=== PATIENT | male | born 1965 | race Caucasian/White ===

== ENCOUNTER 2018-07-10 07:41 | Emergency (ER) | payer MEDICAID ==
[2018-07-10] MEDS ORDERED: 0.9 % SODIUM CHLORIDE 1,000 ML BAG IV ONE (07:48)
--- NOTE | 2018-07-10 07:52 | Emergency Department Record ---
History of Present Illness - General Chief Complaint: Abdominal Pain Stated Complaint: LOWER RT SIDE PAIN Time Seen by Provider: 07/10/18 07:44 Source: Patient Mode of Arrival: Ambulatory Limitations: No limitations - History of Present Illness Initial Comments: 52 yo male presents with right sided pain this morning. The pain started around 6:30am. The pain is sharp. Radiates to the back on the right side. He has some nausea. No vomiting. No rash. No diarrhea. No other changes in his recent health. No fever. MD Complaint: Abdominal pain, Flank pain Onset/Timin -: Hour(s) Location: RLQ Radiation: None Migration to: No migration Severity: Severe Severity scale (1-10): 9 Quality: Sharp Consistency: Constant Improves With: Nothing Worsens With: Nothing Associated Symptoms: Chills, Nausea - Related Data Previous Rx's Medication Instructions Recorded Hydrocodone/APAP 5/325Mg [[place] 1 each PO Q6H #10 tab 07/10/18 5Mg/325Mg] Ondansetron [Zofran Odt] 4 mg PO Q8H #15 tab.rapdis 07/10/18 Allergies Allergy/AdvReac Type Severity Reaction Status Date / Time No Known Drug Allergies Allergy Verified 07/10/18 07:48 Travel Screening - Travel/Exposure Within Last 30 Days Have you traveled within the last 30 days?: Yes Location Detail:: [place] - Travel Symptoms Symptom Screening: None Review of Systems Constitutional: Denies: Chills, Fever, Malaise, Weakness, Weight change Eyes: Denies: Eye discharge ENT: Denies: Congestion, Throat pain Respiratory: Denies: Cough, Dyspnea, Hemoptysis, Wheezes Cardiovascular: Denies: Chest pain, Palpitations, Syncope Endocrine: Denies: Fatigue Gastrointestinal: Reports: Abdominal pain, Nausea. Denies: Diarrhea, Vomiting Genitourinary: Denies: Dysuria, Frequency, Hematuria Musculoskeletal: Reports: Back pain. Denies: Arthralgia Skin: Denies: Bruising, Change in color, Rash Neurological: Denies: Confusion, Headache Psychiatric: Denies: Anxiety Hematological/Lymphatic: Denies: Easy bleeding, Easy bruising Past Medical History - SOCIAL HISTORY Smoking Status: Never smoker - RESPIRATORY Hx Respiratory Disorders: No - CARDIOVASCULAR Hx Cardio Disorders: Yes - NEURO Hx Neuro Disorders: No - GI Hx GI Disorders: Yes Comment:: had scope - Hx Genitourinary Disorders: No - ENDOCRINE Hx Endocrine Disorders: No - MUSCULOSKELETAL Hx Musculoskeletal Disorders: Yes Hx Back Injury: Yes (lifting injury) - PSYCH Hx Psych Problems: No - HEMATOLOGY/ONCOLOGY Hx Hematology/Oncology Disorders: No Family Medical History Hx Diabetes: Father, Mother Hx Heart Disease: Grandparents *Heart Comment: heart attacks Physical Exam - General General Appearance: Alert, Oriented x3, Cooperative, No acute distress Limitations: No limitations - Head Head exam: Atraumatic, Normal inspection - Eye Eye exam: Normal appearance. negative: Conjunctival injection, Scleral icterus - ENT ENT exam: Normal exam Ear exam: Normal external inspection Nasal Exam: Normal inspection Mouth exam: Normal external inspection - Neck Neck exam: Normal inspection - Respiratory Respiratory exam: Normal lung sounds bilaterally. negative: Respiratory distress - Cardiovascular Cardiovascular Exam: Normal rhythm, Normal heart sounds. negative: Diastolic murmur, Systolic murmur Peripheral Pulses: 2+: Radial (R), Radial (L) - GI/Abdominal GI/Abdominal exam: Soft, Tenderness (soft but tender RLQ, R flank). negative: Distended, Guarding, Rebound - Rectal Rectal exam: Deferred - exam: Deferred - Extremities Extremities exam: Normal inspection. negative: Tenderness - Back Back exam: Reports: Normal inspection. Denies: Rash noted - Neurological Neurological exam: Alert, Oriented X3 - Psychiatric Psychiatric exam: Normal affect, Normal mood - Skin Skin exam: Dry, Intact, Normal color, Warm Course Vital Signs 07/10/18 07:45 Temperature 97.4 F L Pulse Rate 44 L Respiratory 20 Rate Blood Pressure 135/82 Pulse Ox 99 - Reevaluation(s) Reevaluation #1: 07/10/18 08:13 No acute changes on the CBC 07/10/18 08:45 The BMP is normal The CT was read as distal 1-2mm stone in the at the UVJ with mild HN with perinephric stranding. Pain is returning. 07/10/18 10:10 4/10 pain. Doing better. He was encouraged to give a UA when available 07/10/18 10:13 The patient was prescribed a controlled substance. The prescription does not exceed three days. MAPS was reviewed at the time of the prescripts The topics of abuse, addiction, over dose, dangers of multiple medications, disposal, and illegal distribution were discussed with the patient. The patient verbalized understanding of the risks of the medication being provided 07/10/18 11:31 UA is negative for infection 07/10/18 11:31 We discussed the results of the tests and questions were answered at the time of discharge. The patient is doing well and is comfortable with DC. DC vitals were reviewed. We discussed at length reasons to immediately return to the ED as well as close follow up. The patient will call the PCP for close follow up of this ED visit to review t his visit and the tests performed Medical Decision Making - Lab Data Result diagrams: 07/10/18 07:50 07/10/18 07:50 Disposition Disposition: Discharge Clinical Impression: Renal colic on right side Disposition: Home, Self-Care Condition: (1) Good Instructions: Renal Colic (ED) Additional Instructions: Call your doctor for the next available follow up appointment Review this ER visit and the tests performed with your family doctor Return to the ER for a recheck if worse, any new concerns or questions Take the prescriptions provided as directed Strain your urine to look for the passed stone at home Prescriptions: Hydrocodone/APAP 5/325Mg [[place] 5Mg/325Mg] 1 each PO Q6H #10 tab Ondansetron [Zofran Odt] 4 mg PO Q8H #15 tab.rapdis Forms: Patient Portal Access Time of Disposition: 11:31 Quality - Quality Measures Quality Measures: N/A - Blood Pressure Screening Does Patient Have Any of the Following: No Blood Pressure Classification: Normal BP Reading Systolic Measurement: 115 Diastolic Measurement: 71 Screening for High Blood Pressure: < Normal BP, F/U Not Required > [G8783]
[2018-07-10] MEDS ORDERED: MORPHINE SULFATE 10 MG/ML VIAL IVP ONE ×2 (07:57→08:45)
[2018-07-10] MEDS ORDERED: ONDANSETRON HCL IV 4 MG/2 ML VIAL IVP ONE ×2 (07:57→08:45)
[2018-07-10 08:03] LABS: ABSOLUTE NEUTROPHIL COUNT 2.77; BASO % 1.2 % (0-6); EOS % 2.7 % (0-6); GRAN % 37.3 % (47-80); HEMATOCRIT 50.1 % (42.0-52.0); HEMOGLOBIN 16.6 gm/dl (14.0-18.0); LYMPH % 48.6 % (16-45); MEAN CELL VOLUME 93.1 fl (81-97); MEAN CORPUSCULAR HEMOGLOBIN 30.9 pg (27-33); MEAN CORPUSCULAR HGB CONC 33.1 g/dl (32-36); MEAN PLATELET VOLUME 9.8 fl (7.4-10.4); MONO % 10.2 % (0-9); PLATELET COUNT 241 K/uL (130-400); RED BLOOD COUNT 5.38 M/uL (4.40-5.70); RED CELL DISTRIBUTION WIDTH 13.6 % (11.5-14.5); WHITE BLOOD COUNT W/O DIFF 7.4 K/uL (4.2-12.2)
[2018-07-10 08:15] LABS: BLOOD UREA NITROGEN 18 mg/dL (6-20); CREATININE 0.9 mg/dL (0.7-1.2); EST GLOMERULAR FILTRATION RATE > 60 mL/min
[2018-07-10 08:16] LABS: LIPASE 19 U/L (13-60); TOTAL PROTEIN 6.8 g/dL (6.6-8.7)
[2018-07-10 08:18] LABS: GLUCOSE,RANDOM 137 mg/dL (74-109)
[2018-07-10 08:20] LABS: ALT/SGPT 30 U/L (<41); AST/SGOT 29 U/L (10.0-50.0)
[2018-07-10 08:21] LABS: ALB/GLOB RATIO 1.3 (1.1-1.8); ALBUMIN 3.9 g/dL (4.0-5.0); ALKALINE PHOSPHATASE 56 U/L (40-129)
[2018-07-10] MEDS ORDERED: KETOROLAC 30 MG/ML VIAL IVP ONE ×2 (08:22→10:10)
[2018-07-10 11:16] LABS: URINE APPEARANCE CLOUDY; URINE BILIRUBIN NEGATIVE (NEGATIVE); URINE BLOOD MODERATE (NEGATIVE); URINE COLOR YELLOW; URINE GLUCOSE (UA) NEGATIVE (NEGATIVE); URINE KETONE 15 mg/dL (NEGATIVE); URINE LEUKOCYTE ESTERASE NEGATIVE (NEGATIVE); URINE NITRITE POSITIVE (NEGATIVE); URINE PROTEIN NEGATIVE (NEGATIVE); URINE UROBILINOGEN 0.2 E.U./dL (0.20 - 1.00)
[2018-07-10 11:25] LABS: URINE BACTERIA NONE SEEN; URINE EPITHELIAL CELLS 0 - 2 (FEW); URINE WBC NONE SEEN (0-2/hpf)
--- NOTE | 2018-07-12 08:33 | CT SCAN REPORT ---
EXAM: CT OF THE ABDOMEN AND PELVIS WITHOUT CONTRAST HISTORY: SEVERE RIGHT SIDED PAIN RADIATING INTO BACK. TECHNIQUE: Thin collimation helical CT examination of the abdomen and pelvis was performed without oral or intravenous contrast administration. Lack of oral and IV contrast utilization limits evaluation of bowel and solid viscera respectively. Comparison: CT angiogram of the chest dated 09/22/15. FINDINGS: There is mild dependent atelectasis in each lung base. No pleural or pericardial effusion. The heart is at the upper limits of normal in size. Mild diffuse decreased density of the liver relative to the spleen consistent with steatosis with a small area of sparing adjacent to the gallbladder fossa. There is a tiny calcified granuloma near the posterior margin of the mid right liver lobe. No suspicious focal hepatic lesion. The spleen, pancreas, and adrenal glands are normal in appearance. The kidneys are normal in size and position. A couple tiny nonobstructing calculi are noted in the mid to upper left kidney with the largest measuring 2 mm. A tiny 1 mm nonobstructing calculus is noted in the upper pole of the right kidney. No other nephrolithiasis is seen. There is a contour deforming fluid density mass arising from the medial lower pole of the left kidney measuring 4.2 x 3.7 cm. This is consistent with a cyst. There is a questionable too small to characterize hypodense lesion within the lateral upper right kidney measuring 10 x 9 mm. This is nonspecific, but also likely a cyst. There is mild dilatation of the right renal collecting system down to the level of the vesicoureteral junction where there is a tiny 1-2 mm calculus suggested projecting into the urinary bladder lumen. There is associated right perinephric fat stranding and proximal periureteral fat stranding. This likely relates to caliceal rupture. Superimposed infection less likely. The left renal collecting system is normal in caliber. Evaluation of the urinary bladder is somewhat limited by lack of distention. The prostate gland is mildly enlarged. Multiple calcifications are scattered within the inferior pelvis consistent with phleboliths. There is calcification within the central prostate and the vas deferens bilaterally. There is mild fat density prominence in the right inguinal canal consistent with fat within a small inguinal hernia sac. No gross bowel dilatation nor bowel wall thickening. The appendix is visualized and normal in appearance. Occasional diverticula are noted in the distal colon without evidence of diverticulitis. A tiny fat filled umbilical hernia is present. No lytic or blastic bone lesion. There are degenerative changes scattered within the visualized spine most pronounced at the lower lumbar levels where they are moderate in degree. There are degenerative changes of the sacroiliac joints. IMPRESSION: 1. TINY 1-2 MM CALCULUS IN THE REGION OF THE RIGHT VESICOURETERAL JUNCTION PROJECTING INTO THE URINARY BLADDER LUMEN. THIS IS ASSOCIATED WITH MILD RIGHT HYDROURETERONEPHROSIS AND MILD FAT STRANDING ADJACENT TO THE KIDNEY AND PROXIMAL URETER. THIS IS CONSISTENT WITH AN OBSTRUCTING CALCULUS ORE RECENTLY PASSED CALCULUS. 2. BILATERAL NEPHROLITHIASIS. LEFT RENAL CYST. TOO SMALL TO CHARACTERIZE HYPODENSE LESION IN THE UPPER POLE OF THE RIGHT KIDNEY IS NONSPECIFIC, BUT LIKELY A CYST. 3. HEPATIC STEATOSIS. 4. PROBABLE SMALL UNCOMPLICATED FAT FILLED RIGHT INGUINAL HERNIA. 5. OCCASIONAL MILD DIVERTICULOSIS OF THE DISTAL COLON WITHOUT EVIDENCE OF DIVERTICULITIS. 6. MINOR DEPENDENT ATELECTASIS IN EACH LUNG BASE. JOB NUMBER: [id number] MTDD
== END 2018-07-10 11:51 | disposition home or self-care (01) ==
LOC: ER 07:41
DX: N13.2 Hydronephrosis with renal and ureteral calculous obstruction (principal); R11.0 Nausea
CPT/HCPCS: 99284 ×2; 96376; 96374; 96375; 83690; 85025; 80053; 81001; 74176; J1885; J2405; J2270; J7030